=== PATIENT | male | born 1960 | race Caucasian/White ===

== ENCOUNTER 2017-07-04 11:27 | Emergency (ER) | payer BC, OTHER ==
[2017-07-04] MEDS ORDERED: HYDROCODONE/APAP 7.5/325 MG TAB ONE (12:05)
--- NOTE | 2017-07-04 12:37 | RAD REPORT ---
EXAM DESCRIPTION: RAD - Shoulder Right 2 View - 07/04/2017 12:28 pm CLINICAL HISTORY: Right shoulder pain COMPARISON: None. FINDINGS: Mild widening of the AC joint is noted which may indicate a mild grade 1 separation. No ac koi fracture or humeral head dislocation seen.
--- NOTE | 2017-07-04 13:49 | ER ---
Nurse's Notes [facility] Name: Varun Jiang Age: 57 yrs Sex: Male : 1960 Arrival Date: 07/04/2017 Time: 11:32 Bed 9 Private MD: Ja Shoemaker H Diagnosis: Pain in shoulder Presentation: 07/04 11:39 Presenting complaint: Patient states: Right shoulder pain 10/10 that radiates to right hb hand after lifting heavy boxes overhead 2 days ago. Pain is reduced when supine with arms overhead. Transition of care: patient was not received from another setting of care. Onset of symptoms was July 02, 2017. Care prior to arrival: Medication(s) given: Motrin, at 0530. 11:39 Method Of Arrival: Ambulatory 11:39 Acuity: GERTRUDE 4 hb 16:30 Initial Sepsis Screen: Does the patient meet any 2 criteria? No. Patient's initial iw sepsis screen is negative. Does the patient have a suspected source of infection? No. Patient's initial sepsis screen is negative. Historical: - Allergies: 11:43 No Known Allergies; hb - Home Meds: 11:43 None [Active]; hb - PMHx: 11:43 Back pain; Hypertension; hb - PSHx: 11:43 None; hb - Immunization history:: Adult Immunizations up to date. - Social history:: Smoking status: Patient/guardian denies using tobacco. Screenin:00 Abuse screen: Denies threats or abuse. Nutritional screening: No deficits noted. em Tuberculosis screening: No symptoms or risk factors identified. Fall Risk None identified. Assessment: 11:56 General: Appears in no apparent distress. uncomfortable, Behavior is calm, cooperative, em Reports lifting boxes at work and woke up on Friday with pain in the right shoulder, full ROM reports tingling when aggravated by movement. Pain: Complains of pain in right shoulder. Neuro: Level of Consciousness is awake, alert, obeys commands, Oriented to person, place, time, situation. Cardiovascular: Capillary refill < 3 seconds Patient's skin is warm and dry. Cardiovascular: Denies chest pain. Respiratory: Airway is patent Respiratory effort is even, unlabored, Respiratory pattern is regular, symmetrical. GI: Abdomen is round non-distended, Patient currently denies nausea, vomiting. : No signs and/or symptoms were reported regarding the genitourinary system. EENT: No signs and/or symptoms were reported regarding the EENT system. Derm: Skin is intact, Skin is pink, warm \T\ dry. Musculoskeletal: Range of motion: intact in all extremities, Reports pain in right shoulder since Friday . Pain is 10 out of 10 on a pain scale. 12:12 Reassessment: Patient appears in no apparent distress at this time. I agree with the iw above assessment by Mark Jamse LVN. 12:33 Reassessment: Patient appears in no apparent distress at this time. Patient and/or em family updated on plan of care and expected duration. Pain level reassessed. Patient is alert, oriented x 3, equal unlabored respirations, skin warm/dry/pink. 13:36 Reassessment: Patient appears in no apparent distress at this time. Patient and/or iw family updated on plan of care and expected duration. Pain level reassessed. Patient is alert, oriented x 3, equal unlabored respirations, skin warm/dry/pink. Vital Signs: 11:42 BP 180 / 100; Pulse 89; Resp 16; Temp 98.2; Pulse Ox 100% on R/A; Weight 88.45 kg; hb Height 5 ft. 5 in. (165.10 cm); Pain 10/10; 11:42 Body Mass Index 32.45 (88.45 kg, 165.10 cm) hb ED Course: 11:32 Patient arrived in ED. na 11:33 Ja Shoemaker DO is Private Physician. na 11:42 Triage completed. hb 11:42 Arm band placed on right wrist. hb 11:44 Abdirashid Pereyra PA is PHCP. jr8 11:44 Eligio Edge MD is Attending Physician. jr8 11:56 Mark James LVN is Primary Nurse. em 12:00 Patient has correct armband on for positive identification. Bed in low position. Call em light in reach. 12:00 No provider procedures requiring assistance completed. Patient did not have IV access em during this emergency room visit. 12:27 X-ray completed. Portable x-ray completed in exam room. Patient tolerated procedure ml well. Patient tolerated procedure poorly. 12:28 XRAY Shoulder RIGHT 2 view In Process Unspecified. EDMS 13:48 Pierson, Phil, MD is Referral Physician. jr8 Administered Medications: 12:08 Drug: [place] (7.5 mg-325 mg) 1 tabs Route: PO; em 12:47 Follow up: Response: No adverse reaction em 14:04 Drug: TORadol 60 mg Route: IM; Site: right gluteus; iw Outcome: 13:38 Discharged to home ambulatory. iw 13:38 Condition: good 13:38 Discharge instructions given to patient, Instructed on discharge instructions, follow up and referral plans. Demonstrated understanding of instructions, follow-up care, medications, Prescriptions given X 3. 13:48 Discharge ordered by . jr8 14:40 Patient left the ED. iw Signatures: Dispatcher [employer] EDMS Jae Dangelo Edgar, CLIPPER OPERATOR CLIPPER OPERATOR Yamileth Acosta, RN RN Micheline Barba Josh, PA PA jr8 Rayna Black, RN RN hb
--- NOTE | 2017-07-04 13:49 | EDPHYS ---
Physician Documentation [facility] Name: Varun Jiang Age: 57 yrs Sex: Male : 1960 Arrival Date: 07/04/2017 Time: 11:32 Bed 9 Private MD: Ja Shoemaker H ED Physician Eligio Edge HPI: 07/04 12:23 This 57 yrs old Male presents to ER via Ambulatory with complaints of jr8 Shoulder Pain. 12:23 The patient or guardian complains of decreased range of motion, pain, tenderness. right jr8 shoulder and right trapezius. Context: The problem was sustained at work, resulted from repetitive motion. Onset: The symptoms/episode began/occurred acutely, 3 day(s) ago. Modifying factors: the symptoms are alleviated by nothing. The symptoms are aggravated by movement. Associated signs and symptoms: The patient has no apparent associated signs or symptoms. Severity of symptoms: At their worst the symptoms were moderate, in the emergency department the symptoms are unchanged. The patient has not experienced similar symptoms in the past. The patient has not recently seen a physician. Patient stated that he works in [employer] department. Stated that he has to lift and has arms above his head all day. Started with right shoulder pain that is unrelenting . Historical: - Allergies: 11:43 No Known Allergies; hb - Home Meds: 11:43 None [Active]; hb - PMHx: 11:43 Back pain; Hypertension; hb - PSHx: 11:43 None; hb - Immunization history:: Adult Immunizations up to date. - Social history:: Smoking status: Patient/guardian denies using tobacco. ROS: 12:23 Eyes: Negative for injury, pain, redness, and discharge, ENT: Negative for injury, jr8 pain, and discharge, Neck: Negative for injury, pain, and swelling, Cardiovascular: Negative for chest pain, palpitations, and edema, Respiratory: Negative for shortness of breath, cough, wheezing, and pleuritic chest pain, Abdomen/GI: Negative for abdominal pain, nausea, vomiting, diarrhea, and constipation, Back: Negative for injury and pain, Skin: Negative for injury, rash, and discoloration, Neuro: Negative for headache, weakness, numbness, tingling, and seizure. 12:23 MS/extremity: Positive for decreased range of motion, pain, tenderness, Negative for injury or acute deformity, ecchymosis, swelling. Exam: 12:23 Cardiovascular: Regular rate and rhythm with a normal S1 and S2. No gallops, murmurs, jr8 or rubs. Normal PMI, no JVD. No pulse deficits. Respiratory: Lungs have equal breath sounds bilaterally, clear to auscultation and percussion. No rales, rhonchi or wheezes noted. No increased work of breathing, no retractions or nasal flaring. Abdomen/GI: Soft, non-tender, with normal bowel sounds. No distension or tympany. No guarding or rebound. No evidence of tenderness throughout. Back: No spinal tenderness. No costovertebral tenderness. Full range of motion. Skin: Warm, dry with normal turgor. Normal color with no rashes, no lesions, and no evidence of cellulitis. Neuro: Awake and alert, GCS 15, oriented to person, place, time, and situation. Cranial nerves II-XII grossly intact. Motor strength 5/5 in all extremities. Sensory grossly intact. Cerebellar exam normal. Normal gait. 12:23 Musculoskeletal/extremity: Extremities: grossly normal except: noted in the right shoulder: Patient has tenderness over the right trapezius muscle and around scapular region with mild spasm present. Pain with all ROM but with full ROM. Equal strength bilaterally with no neuro or sensory deficits. 2+ radial pulses bilaterally. No trauma noted . Vital Signs: 11:42 BP 180 / 100; Pulse 89; Resp 16; Temp 98.2; Pulse Ox 100% on R/A; Weight 88.45 kg; hb Height 5 ft. 5 in. (165.10 cm); Pain 10/10; 11:42 Body Mass Index 32.45 (88.45 kg, 165.10 cm) hb MDM: 11:44 Patient medically screened. jr8 13:47 Differential diagnosis: DJD, tendonitis, AC separation, subluxation, muscle spasm. Data jr8 reviewed: vital signs, nurses notes, radiologic studies, plain films, and as a result, I will discharge patient. Data interpreted: Pulse oximetry: on room air is 100 %. Interpretation: normal. Counseling: I had a detailed discussion with the patient and/or guardian regarding: the historical points, exam findings, and any diagnostic results supporting the discharge/admit diagnosis, radiology results, the need for outpatient follow up, a orthopedic surgeon, to return to the emergency department if symptoms worsen or persist or if there are any questions or concerns that arise at home. 07/04 11:53 Order name: XRAY Shoulder RIGHT 2 view; Complete Time: 12:44 jr8 07/04 12:44 Order name: [place]; Complete Time: 13:46 jr8 Administered Medications: 12:08 Drug: [place] (7.5 mg-325 mg) 1 tabs Route: PO; em 12:47 Follow up: Response: No adverse reaction em 14:04 Drug: TORadol 60 mg Route: IM; Site: right gluteus; iw Disposition: 07/04/17 13:48 Discharged to Home. Impression: Pain in shoulder. - Condition is Stable. - Prescriptions for Ibuprofen 800 mg Oral Tablet - take 1 tablet by ORAL route every 12 hours As needed take with food; 20 tablet. Tylenol- Codeine #3 300-30 mg Oral Tablet - take 2 tablet by ORAL route every 6 hours As needed; 30 tablet. Cyclobenzaprine 10 mg Oral Tablet - take 1 tablet by ORAL route every 8 hours As needed; 30 tablet. - Medication Reconciliation Form, Thank You Letter, Antibiotic Education, Prescription Opioid Use form. - Follow up: Phil Pierson MD; When: 2 - 3 days; Reason: Recheck today's complaints, Continuance of care, Re-evaluation by your physician. - Problem is new. - Symptoms have improved. Addendum: 07/19/2017 19:44 Co-signature as Attending Physician, Eligio Edge MD I agree with the assessment and k dr plan of care. Signatures: Dispatcher [employer] [facility] Eligio Edge MD MD [facility] Mark James, STORE PERSON STORE PERSON Yamileth Mosher, MAC RN iw Abdirashid Pereyra PA PA jr8 Rayna Black, MAC RN Corrections: (The following items were deleted from the chart) 07/04 14:40 13:48 07/04/2017 13:48 Discharged to Home. Impression: Pain in shoulder. Condition is iw Stable. Forms are Medication Reconciliation Form, Thank You Letter, Antibiotic Education, Prescription Opioid Use. Follow up: Dr. Phil Pierson; When: 2 - 3 days; Reason: Recheck today's complaints, Continuance of care, Re-evaluation by your physician. Problem is new. Symptoms have improved. jr8
[2017-07-04] MEDS ORDERED: KETOROLAC 30 MG/ML INJ ONE (13:53)
== END 2017-07-04 14:40 | disposition home or self-care (01) ==
LOC: ER 11:27
DX: M25.511 Pain in right shoulder (principal)
CPT/HCPCS: 96372; 99283

== ENCOUNTER 2020-08-21 11:29 | Emergency (ER) | payer SELFPAY ==
--- NOTE | 2020-08-21 12:08 | RAD REPORT ---
EXAM DESCRIPTION: CT - Head Brain Wo Cont - 08/21/2020 11:59 am CLINICAL HISTORY: Numbness COMPARISON: None. TECHNIQUE: Computed axial tomography of the head was obtained. IV contrast was not requested. All CT scans are performed using dose optimization technique as appropriate and may include automated exposure control or mA/KV adjustment according to patient size. FINDINGS: An intracranial bleed is not seen . The ventricles are normal in caliber. No extra-axial fluid collection is noted. Fluid within the sinuses/ mastoids is not seen. IMPRESSION: No acute intracranial abnormality is seen. If patient's symptoms persist MRI of the bra in would be recommended.
--- NOTE | 2020-08-21 12:42 | EDPHYS ---
Physician Documentation [facility] Name: Varun Jiang Age: 60 yrs Sex: Male : 1960 Arrival Date: 08/21/2020 Time: 11:33 Bed 5 Private MD: ED Physician Clinton Bhakta HPI: 08/21 12:35 This 60 yrs old Male presents to ER via Ambulatory with complaints of rn weakness. 12:36 The patient presents to the emergency department with weakness of the right upper rn extremity, right lower extremity, paresthesias of the. Onset: The symptoms/episode began/occurred 3 month(s) ago. Associated signs and symptoms: Pertinent positives: paresthesias, weakness, Pertinent negatives: fever, headache. Severity of symptoms: At their worst the symptoms were moderate in the emergency department the symptoms have improved. The patient has not experienced similar symptoms in the past. The patient has not recently seen a physician. Reports 2-3 months ago thinks had a stroke, had a droopy mouth, and RUE/RLE weakness and numbness. RUE strength improving but RLE still weak. His work has told him needs documentation of stroke or he will be fired. No head injury. No new symptoms. Ran out of BP meds a month or so ago. Taking daily aspirin.. Historical: - Allergies: 11:42 No Known Allergies; jd3 - Home Meds: 11:42 None [Active]; jd3 - PMHx: 11:42 Back pain; Hypertension; jd3 - PSHx: 11:42 None; jd3 - Immunization history:: Adult Immunizations up to date. - Social history:: Smoking status: Patient denies any tobacco usage or history of. - Family history:: not pertinent. - Hospitalizations: : No recent hospitalization is reported. ROS: 12:36 Constitutional: Negative for fever, chills, and weight loss, Eyes: Negative for injury, rn pain, redness, and discharge, Neck: Negative for injury, pain, and swelling, Cardiovascular: Negative for chest pain, palpitations, and edema, Respiratory: Negative for shortness of breath, cough, wheezing, and pleuritic chest pain, Abdomen/GI: Negative for abdominal pain, nausea, vomiting, diarrhea, and constipation, Back: Negative for injury and pain, : Negative for injury, bleeding, discharge, and swelling, MS/Extremity: Negative for injury and deformity, Skin: Negative for injury, rash, and discoloration, Neuro: Negative for headache, seizure Exam: 12:36 Constitutional: This is a well developed, well nourished patient who is awake, alert, rn and in no acute distress. Head/Face: Normocephalic, atraumatic. Eyes: Periorbital areas with no swelling, redness, or edema. No ptosis. ENT: MMM Cardiovascular: Tachycardic, regular. No pulse deficits. Respiratory: No increased work of breathing, no retractions or nasal flaring. Abdomen/GI: soft, non-tender Skin: Warm, dry with normal turgor. Normal color with no rashes, no lesions, and no evidence of cellulitis. MS/ Extremity: Pulses equal, no cyanosis. Neuro: Awake and alert, GCS 15, oriented to person, place, time, and situation. Cranial nerves II-XII grossly intact. Motor strength 5/5 in LUE/LLE, 4/5 RUE without drift, 3+/5 RLE. Sensory grossly intact. Cerebellar exam normal. Vital Signs: 11:42 BP 170 / 109; Pulse 106; Resp 16 S; Temp 97.4(TE); Pulse Ox 99% on R/A; Weight 86.18 kg jd3 (R); Height 5 ft. 6 in. (167.64 cm) (R); Pain 6/10; 12:45 BP 206 / 130; Pulse 110; jl7 12:50 BP 197 / 120; Pulse 103; Resp 15; Pulse Ox 100% ; Pain 0/10; jl7 11:42 Body Mass Index 30.67 (86.18 kg, 167.64 cm) jd3 MDM: 12:25 Patient medically screened. rn 12:36 Data reviewed: vital signs, nurses notes, radiologic studies, CT scan, and as a result, rn I will discharge patient. Counseling: I had a detailed discussion with the patient and/or guardian regarding: the historical points, exam findings, and any diagnostic results supporting the discharge/admit diagnosis, radiology results, the need for outpatient follow up, to return to the emergency department if symptoms worsen or persist or if there are any questions or concerns that arise at home. Special discussion: I discussed with the patient/guardian in detail that at this point there is no indication for admission to the hospital. It is understood, however, that if the symptoms persist or worsen the patient needs to return immediately for re-evaluation. Based on the history and exam findings, there is no indication for further emergent testing or inpatient evaluation. I discussed with the patient/guardian the need to see the neurologist for further evaluation of the symptoms. ED course: No new symptoms today, here for documentation of stroke he had 3 months ago, CT head no acute findings but still weak on right side of body. Recommend neuro f/u, continuation of aspirin. . 08/21 11:48 Order name: CT Head Brain wo Cont; Complete Time: 12:25 sv Administered Medications: 12:52 Drug: cloNIDine 0.1 mg Route: PO; [facility] 12:59 Follow up: Response: Medication administered at discharge. jl7 Disposition: 08/21/20 12:41 Discharged to Home. Impression: Cerebral infarction, Weakness. - Condition is Stable. - Discharge Instructions: Stroke Prevention, Weakness, Rehabilitation After a Stroke, Adult, Ischemic Stroke Treated Without Warfarin. - Prescriptions for Lisinopril 10 mg Oral Tablet - take 1 tablet by ORAL route once daily; 30 tablet. - Medication Reconciliation Form, Thank You Letter, Antibiotic Education, Prescription Opioid Use form. - Follow up: Jayson Velazco MD; When: As needed; Reason: Recheck today's complaints, Re-evaluation by your physician. - Problem is an ongoing problem. - Symptoms are unchanged. Signatures: Dispatcher [employer] EDMS Clinton Bhakta MD MD rn Leal, Jahala, RN RN jl7 Vazquez Lee RN RN jd3 Corrections: (The following items were deleted from the chart) 13:01 12:41 08/21/2020 12:41 Discharged to Home. Impression: Cerebral infarction; Weakness. jl7 Condition is Stable. Forms are Medication Reconciliation Form, Thank You Letter, Antibiotic Education, Prescription Opioid Use. Follow up: Jayson Velazco; When: As needed; Reason: Recheck today's complaints, Re-evaluation by your physician. Problem is an ongoing problem. Symptoms are unchanged. rn
--- NOTE | 2020-08-21 12:42 | ER ---
Nurse's Notes [facility] Name: Varun Jiang Age: 60 yrs Sex: Male : 1960 Arrival Date: 08/21/2020 Time: 11:33 Bed 5 Private MD: Diagnosis: Cerebral infarction;Weakness Presentation: 08/21 11:40 Chief complaint: Patient states: "about a month ago I had numbness to my right arm and jd3 leg and my face was drooping. I had a stroke. I diagnosed it as that. I was not seen at a hospital. i am still having that numbness today.". Coronavirus screen: At this time, the client does not indicate any symptoms associated with coronavirus-19. Ebola Screen: Patient negative for fever greater than or equal to 101.5 degrees Fahrenheit, and additional compatible Ebola Virus Disease symptoms. Initial Sepsis Screen: Does the patient meet any 2 criteria? No. Patient's initial sepsis screen is negative. Does the patient have a suspected source of infection? No. Patient's initial sepsis screen is negative. Risk Assessment: Do you want to hurt yourself or someone else? Patient reports no desire to harm self or others. Onset of symptoms was July 21, 2020. 11:40 Method Of Arrival: Amb[facility] 11:40 Acuity: GERTRUDE 2 jd3 Historical: - Allergies: 11:42 No Known Allergies; jd3 - Home Meds: 11:42 None [Active]; jd3 - PMHx: 11:42 Back pain; Hypertension; jd3 - PSHx: 11:42 None; jd3 - Immunization history:: Adult Immunizations up to date. - Social history:: Smoking status: Patient denies any tobacco usage or history of. - Family history:: not pertinent. - Hospitalizations: : No recent hospitalization is reported. Screenin:43 VAN Screening: Arm Drift: Patient shows no arm weakness. Patient is VAN negative. jd3 12:45 Abuse screen: Denies threats or abuse. Denies injuries from another. Nutritional jl7 screening: No deficits noted. Tuberculosis screening: No symptoms or risk factors identified. Fall Risk None identified. Assessment: 11:48 Reassessment: Received VO from Dr Bhakta for CT head. 12:40 Reassessment: Dr. Bhakta at bedside. jl7 12:45 General: Appears in no apparent distress. uncomfortable, Behavior is calm, cooperative, jl7 appropriate for age. Pain: Denies pain. Neuro: Level of Consciousness is awake, alert, obeys commands, Oriented to person, place, time, situation. Cardiovascular: Patient's skin is warm and dry. Respiratory: Airway is patent Respiratory effort is even, unlabored, Respiratory pattern is regular, symmetrical. GI: No signs and/or symptoms were reported involving the gastrointestinal system. Derm: Skin is pink, warm \\T\\ dry. 12:55 Reassessment: Pt reports he has not taken in HTN medication in "A long time." Dr. Bhakta jl7 notified of BP 206/130, VO for 0.1 mg Clonidine x 1 with discharge, pt medicated at discharged as ordered. Vital Signs: 11:42 BP 170 / 109; Pulse 106; Resp 16 S; Temp 97.4(TE); Pulse Ox 99% on R/A; Weight 86.18 kg jd3 (R); Height 5 ft. 6 in. (167.64 cm) (R); Pain 6/10; 12:45 BP 206 / 130; Pulse 110; jl7 12:50 BP 197 / 120; Pulse 103; Resp 15; Pulse Ox 100% ; Pain 0/10; jl7 11:42 Body Mass Index 30.67 (86.18 kg, 167.64 cm) jd3 ED Course: 11:33 Patient arrived in ED. as 11:42 Triage completed. jd3 11:43 Arm band placed on. jd3 11:58 CT Head Brain wo Cont In Process Unspecified. EDMS 12:24 Josi Garcia RN is Primary Nurse. jl7 12:25 Clinton Bhakta MD is Attending Physician. rn 12:41 Jayson Velazco MD is Referral Physician. rn 12:45 Patient has correct armband on for positive identification. Bed in low position. Call jl7 light in reach. Side rails up X 1. Pulse ox on. NIBP on. 12:58 No provider procedures requiring assistance completed. Patient did not have IV access jl7 during this emergency room visit. Administered Medications: 12:52 Drug: cloNIDine 0.1 mg Route: PO; jl7 12:59 Follow up: Response: Medication administered at discharge. jl7 Outcome: 12:41 Discharge ordered by . rn 12:58 Discharged to home ambulatory. jlRachelle 12:58 Condition: stable 12:58 Discharge instructions given to patient, Instructed on discharge instructions, follow up and referral plans. medication usage, Demonstrated understanding of instructions, follow-up care, medications, Prescriptions given X 1. 13:01 Patient left the ED. jl7 Signatures: Dispatcher [employer] EDEwa Corbin RN RN sv Martinez, Amelia as Nieto, Roman, MD MD rn Leal, Jahala, RN RN jl7 Davies, Jonathon, RN RN jd3 Corrections: (The following items were deleted from the chart) 11:42 11:40 Acuity: GERTRUDE 3 jd3 jd3
[2020-08-21] MEDS ORDERED: cloNIDine HCL 0.1 MG TAB ONE (13:12)
[2020-08-21 13:46] VITALS: TEMP 97.4
[2020-08-21 13:49] VITALS: BP 197/120; O2SAT 100
== END 2020-08-21 13:01 | disposition home or self-care (01) ==
LOC: ER 11:29
DX: I63.9 Cerebral infarction, unspecified (principal); G81.91 Hemiplegia, unspecified affecting right dominant side; I10 Essential (primary) hypertension
CPT/HCPCS: 70450; 99284